=== PATIENT | male | born 1985 | race Two or more races ===

== ENCOUNTER 2018-01-10 22:50 | Emergency (ER) | payer SELFPAY ==
[2018-01-10 22:59] VITALS: BP 143/76
[2018-01-10] MEDS ORDERED: LIDOCAINE 2% VISCOUS SOLN 20 ML UDCUP PO ONE (23:34)
[2018-01-10] MEDS ORDERED: METOCLOPRAMIDE HCL ORAL SOLN 10 MG/10 ML UDCUP PO ONE (23:34)
[2018-01-10] MEDS ORDERED: MAG HYDROX/AL HYDROX/SIMETH SUSP 30 ML UDCUP PO ONE (23:34)
--- NOTE | 2018-01-10 23:40 | ER Document Report ---
HPI - HPI Time Seen by Provider: 01/10/18 23:17 Pain Level: 4 Notes: Patient is a 32-year-old male with no significant past medical history who presents to the ED complaining of a burning sensation to the top of his mouth and throat that is there most of the time during the day and night for the last 3 weeks. Patient states that he was evaluated in [place] and emergency department and was given clindamycin, Zofran, pantoprazole, and tramadol with no relief. Patient states that he was treated for acid reflux as the primary suspicion, but his medicine has not been helping. Patient is not aware of anything that improves or worsens his pain. He is still able to eat and drink without difficulty otherwise. He is urinating normally and having normal bowel movements. Denies drug allergies or excessive alcohol consumption. Denies any headache, fever, neck pain, hoarseness, drooling, URI, chest pain, palpitations , syncope, cough, shortness of breath, wheeze, dyspnea, abdominal pain, nausea/ vomiting/diarrhea, urinary retention, dysuria, hematuria, or rash. Martii utilized for visit. - ROS Systems Reviewed and Negative: Yes All other systems reviewed and negative Past Medical History - Social History Smoking Status: Unknown if Ever Smoked Family History: Reviewed & Not Pertinent Vertical Provider Document - CONSTITUTIONAL Agree With Documented VS: Yes Notes: PHYSICAL EXAMINATION: GENERAL: Well-appearing, well-nourished and in no acute distress. A&Ox4. Answers questions appropriately. Moves comfortably w/o notable distress HEAD: Atraumatic, normocephalic. EYES: Pupils equal round and reactive to light, extraocular movements intact, sclera anicteric, conjunctiva are normal. ENT: EAC clear b/l. TM's intact b/l without erythema, fluid, or perforation. Nares patent and with clear discharge. oropharynx mild erythema without exudates. 1+ tonsilar hypertrophy without erythema or exudate. No palatine shift. Uvula midline. No tongue protrusion. No drooling, hoarseness, or airway compromise. Moist mucous membranes. No sinus tenderness. No oral tenderness or obvious ulceration/lesion/abscess. NECK: Normal range of motion, supple without lymphadenopathy. No rigidity/ meningismus. LUNGS: Breath sounds clear to auscultation bilaterally and equal. No wheezes rales or rhonchi. No retractions HEART: Regular rate and rhythm without murmurs, rubs, gallops. ABDOMEN: Soft, nontender, nondistended abdomen. No guarding, no rebound. No masses appreciated. Normal bowel sounds present. No CVA tenderness bilaterally. No hepatosplenomegaly. NEUROLOGICAL: Normal speech, normal gait. Normal sensory, motor exams PSYCH: Normal mood, normal affect. SKIN: Warm, Dry, normal turgor, no rashes or lesions noted. - INFECTION CONTROL TRAVEL OUTSIDE OF THE [place] IN LAST 30 DAYS: No Course - Re-evaluation Re-evalutation: 01/11/18 00:43 Dr. Crowder was consulted who came and did a thorough evaluation with the patient as well with the assistance of Martii. Alcantar in agreement with plan/dispo: Patient is an afebrile, well-hydrated 32-year-old male who presents to the ED with a burning sensation to his mouth, unspecified. Vitals are acceptable without any significant tachycardia, tachypnea, or hypoxia. PE is otherwise unremarkable. We will obtain a vitamin B12 level. We did thoroughly review with the patient that we do not exactly know what is causing the burning sensation to the mouth at this time. A GI cocktail did improve his symptoms, primarily the lidocaine. There is the possibility that there could be a secondary issue of acid reflux, but his primary concern is the burning in his mouth. There was no other history or evidence to show for any new chemicals, inhalants, or other known exposure. We do sympathized with the patient that this is his third emergency department visit without any answers. He did give us permission to pass his information along to our social welfare clerk due to concern about money and payments. Information was also given for our lab result staff to notify him of his results after the B12 level comes back. We will give him information for ear nose and throat as well as the free dental clinic that we would like him to utilize for further evaluation and management as we feel that those specialties may be able to provide him with more accurate answers. No further labs or imaging warranted at this time. Patient is nontoxic-appearing and is tolerating p.o. without difficulty. Low suspicion for any meningitis, sepsis, peritonsillar/pharyngeal abscess, respiratory compromise, Edouard's, temporal arteritis, or other emergent systemic condition at this time. Patient is aware this condition can change from initial presentation and he needs to monitor symptoms closely. I will send him home with a prescription for Carafate , omeprazole, and Magic mouthwash. Conservative measures otherwise for symptoms. Return to the ED with any worsening/concerning symptoms otherwise as reviewed in discharge. Patient is in agreement. - Vital Signs Vital signs: Temp Pulse Resp BP Pulse Ox 98.4 F 81 16 143/76 H 97 01/10/18 22:59 01/10/18 22:59 01/10/18 22:59 01/10/18 22:59 01/10/18 22:59 Discharge - Discharge Clinical Impression: Oral pain of unknown etiology Condition: Stable Disposition: HOME, SELF-CARE Additional Instructions: Your vitamin B12 test may take about 1 week to result and you should be notified by our staff for that result, but feel free to call us in 7 days for an update if you have not heard otherwise. You may fill the prescriptions that have been provided to you, however, if they are too expensive you may see if there is an alternative medication [id number] that may be cheaper for you. You should also be contacted by our social welfare clerk to discuss finances with you. If you have not heard anything by next week please feel free to call the emergency department. [place] and floss twice daily Maintain fluid intake Take antibiotics as directed Mouthwash, salt water gargles, peroxide rinse as needed Tylenol/ibuprofen as needed Recheck with PCM Schedule an appointment with a dentist as well as ENT for further evaluation and management Return to the ED with any worsening symptoms and/or development of fever, headache, facial swelling, swelling of lips/tongue/throat, trouble swallowing, drooling, hoarseness, neck pain/stiffness, chest pain, palpitations, syncope, shortness of breath, trouble breathing, abdominal pain, n/v/d, numbness/tingling , or other worsening symptoms that are concerning to you. Prescriptions: Nystatin/Dexameth/Diphen [Magic Mouthwash (Omh Formula) Susp] 5 ml PO QID #125 ml Omeprazole 20 mg PO DAILY #30 tablet. Sucralfate [Carafate] 1 gm PO BID #100 ml Forms: Elevated Blood Pressure Referrals: TARIQ STEWART DO [ASSOCIATE] - Follow up as needed [facility] [Provider Group] - Follow up as needed
== END 2018-01-11 01:00 | disposition home or self-care (01) ==
LOC: ER 22:50
DX: K13.79 Other lesions of oral mucosa (principal); J35.1 Hypertrophy of tonsils
CPT/HCPCS: 99283; 36415; 87070; 87880; 82607; J3490